=== PATIENT | male | born 1995 | race Caucasian/White ===

== ENCOUNTER 2016-12-21 22:51 | Emergency (ER) | payer OTHER ==
[~2016-12-21] VITALS: Ht 167.6 cm; Wt 89.4 kg
[2016-12-21] MEDS ORDERED: PROTONIX40 M1 PO (22:54)
[2016-12-21] MEDS ORDERED: ANTIVERT25 MG PO (23:30)
[2016-12-21] MEDS ORDERED: PREDNISONE 20 M20 MG PO (23:30)
[2016-12-21] MEDS ORDERED: BUTALB-APAP-CA1 EACH PO (23:30)
[2016-12-21 23:46] VITALS: BP 140/94
== END 2016-12-21 23:48 | disposition home or self-care (01) ==
LOC: ER 22:51
DX: G44.209 Tension-type headache, unspecified, not intractable (principal); H81.10 Benign paroxysmal vertigo, unspecified ear; Z88.2 Allergy status to sulfonamides

== ENCOUNTER 2017-02-24 13:44 | Emergency (ER) | payer OTHER ==
[~2017-02-24] VITALS: Ht 167.6 cm; Wt 86.2 kg
[~2017-02-24 13:44] MED LIST: ANTIVERT25 MG PO; BUTALB-APAP-CA1 EACH PO; PREDNISONE 20 M20 MG PO; PROTONIX40 M1 PO
[2017-02-24 15:11] VITALS: BP 112/83
== END 2017-02-24 15:13 | disposition home or self-care (01) ==
LOC: ER 13:44
DX: K52.1 Toxic gastroenteritis and colitis (principal); Z98.890 Other specified postprocedural states; Z88.2 Allergy status to sulfonamides

== ENCOUNTER → 2017-04-19 | Outpatient (CLI) | payer OTHER | LOC: ULTRA 12:27 | DX: K76.0 Fatty (change of) liver, not elsewhere classified (principal); R16.1 Splenomegaly, not elsewhere classified; R79.89 Other specified abnormal findings of blood chemistry ==

== ENCOUNTER → 2017-05-06 | Outpatient (CLI) | payer OTHER | LOC: NUC 09:39 | DX: R94.5 Abnormal results of liver function studies (principal) ==